=== PATIENT | female | born 1985 | race Caucasian/White ===

== ENCOUNTER → 2017-02-06 | Outpatient (CLI) | payer OTHER ==
[2017-02-06 12:20] LABS: ADD MAN DIFF? NO
[2017-02-06 12:29] LABS: BASO # 0.1 x10^3/uL (0.0-0.2); BASO % 1 % (0-3); EOS # 0.1 x10^3/uL (0.0-0.7); EOS % 1 % (0-3); HEMATOCRIT 38.8 % (36.0-47.0); HEMOGLOBIN 12.9 g/dL (12.0-15.5); LYMPH # 2.3 x10^3/uL (1.0-4.8); LYMPH % 23 % (24-48); MEAN CORPUSCULAR HEMOGLOBIN 30 pg (25-35); MEAN CORPUSCULAR HGB CONC 33 g/dL (31-37); MEAN CORPUSCULAR VOLUME 90 fL (79-100); MONO # 0.6 x10^3/uL (0.0-1.1); MONO % 6 % (0-9); NEUT # 6.9 x10^3uL (1.8-7.7); NEUT % 70 % (31-73); PLATELET COUNT 225 x10^3/uL (140-400); RED BLOOD COUNT 4.33 x10^6/uL (3.50-5.40); RED CELL DISTRIBUTION WIDTH 13.9 % (11.5-14.5); WHITE BLOOD COUNT 9.9 x10^3/uL (4.0-11.0)
[2017-02-06 17:11] LABS: HEP B SURFACE AG Negative (Negative)
[2017-02-07 06:14] LABS: RPR Non Reactive (Non Reactive)
[2017-02-07 14:22] LABS: HIV ANTIBODY Non Reactive (Non Reactive)
== END | disposition home or self-care (01) ==
LOC: LAB 12:03
DX: Z34.91 Encounter for supervision of normal pregnancy, unspecified, first trimester (principal); Z3A.09 9 weeks gestation of pregnancy
CPT/HCPCS: 36415; 85025; 86593; 86703; 86762; 86850; 86900; 86901; 87086; 87340

== ENCOUNTER → 2017-02-15 | Outpatient (CLI) | payer OTHER | END | disposition home or self-care (01) | LOC: KCIC US 12:57 | DX: O26.891 Other specified pregnancy related conditions, first trimester (principal); Z3A.13 13 weeks gestation of pregnancy | CPT/HCPCS: 76801; 76817 ==

== ENCOUNTER → 2017-04-11 | Outpatient (CLI) | payer OTHER | END | disposition home or self-care (01) | LOC: KCIC US 10:46 | DX: Z34.92 Encounter for supervision of normal pregnancy, unspecified, second trimester (principal); Z3A.20 20 weeks gestation of pregnancy | CPT/HCPCS: 76805 ==

== ENCOUNTER → 2017-07-03 | Outpatient (CLI) | payer OTHER | END | disposition home or self-care (01) | LOC: KCIC US 14:46 | DX: O36.5930 Maternal care for other known or suspected poor fetal growth, third trimester, not applicable or unspecified (principal); Z3A.33 33 weeks gestation of pregnancy | CPT/HCPCS: 76805 ==

== ENCOUNTER 2017-08-21 07:41 | Inpatient (IN) | payer OTHER ==
[2017-08-21] MEDS ORDERED: OXYTOCIN 30 UNIT/500 ML PREMIX 500 ML IV ×2 (08:30→15:00)
[2017-08-21] MEDS ORDERED: LIDOCAINE 1% PF 30 ML VIAL. INJ (08:30)
[2017-08-21] MEDS ORDERED: TERBUTALINE 1 MG/ML VIAL. SQ (08:30)
[2017-08-21] MEDS ORDERED: 0.9 % SODIUM CHLORIDE 10 ML DISP.SYRIN. IV ×2 (08:30→15:00)
[2017-08-21 08:38] LABS: ADD MAN DIFF? NO
[2017-08-21 08:42] LABS: BASO % 0 % (0-3); EOS % 0 % (0-3); HEMOGLOBIN 13.4 g/dL (12.0-15.5); LYMPH # 2.3 x10^3/uL (1.0-4.8); LYMPH % 18 % (24-48); MEAN CORPUSCULAR HEMOGLOBIN 31 pg (25-35); MEAN CORPUSCULAR HGB CONC 35 g/dL (31-37); MEAN CORPUSCULAR VOLUME 89 fL (79-100); MONO # 1.2 x10^3/uL (0.0-1.1); MONO % 9 % (0-9); NEUT # 9.6 x10^3uL (1.8-7.7); NEUT % 73 % (31-73); PLATELET COUNT 178 x10^3/uL (140-400); RED BLOOD COUNT 4.36 x10^6/uL (3.50-5.40); WHITE BLOOD COUNT 13.2 x10^3/uL (4.0-11.0)
[2017-08-21 08:43] LABS: BILIRUBIN,URINE NEGATIVE (NEG); COLOR,URINE YELLOW; GLUCOSE,URINE NEGATIVE (NEG); NITRITE,URINE NEGATIVE (NEG); PROTEIN,URINE NEGATIVE (NEG-TRACE); UROBILINOGEN,URINE 0.2 mg/dL (0.2 mg/dL)
[2017-08-21] MEDS: IV RINGERS,LACTATED 1000ML 1,000 ML IV (08:58)
[2017-08-21 09:00] LABS: BACTERIA,URINE MANY /HPF (0-FEW); CLARITY,URINE HAZY; SQUAMOUS EPITHELIAL CELL,UR MANY /LPF
[2017-08-21] MEDS: OXYTOCIN 30 UNIT/500 ML PREMIX 500 ML IV (09:04)
[2017-08-21] MEDS: fentaNYL PF VIAL 100 MCG/2 ML VIAL IV (11:32)
[2017-08-21] MEDS: IBUPROFEN 800 MG TABLET. PO ×2 (13:19→23:38)
[2017-08-21] MEDS ORDERED: ZOLPIDEM 5 MG TABLET. PO (15:00)
[2017-08-21] MEDS ORDERED: oxyCODONE/APAP 5/325 1 TAB TABLET PO (15:00)
[2017-08-21] MEDS ORDERED: MAG HYDROX/ALUMINUM HYD/SIMETH 30 ML ORAL.SUSP PO (15:00)
[2017-08-21] MEDS ORDERED: BENZOCAINE 20% TOPICAL AEROSOL SPRAY 57GM CAN. TP (15:00)
[2017-08-21] MEDS ORDERED: HYDROCORTISONE 1% TOPICAL OINTMENT 30GM TUBE. TP (15:00)
[2017-08-21] MEDS ORDERED: PHENYLEPH/MINERAL OIL/PETROLAT RECTAL OINTMENT 28GM TUBE. RC (15:00)
[2017-08-21] MEDS ORDERED: MAGNESIUM HYDROXIDE 2,400 MG/30 ML ORAL.SUSP. PO (15:00)
[2017-08-21] MEDS ORDERED: SIMETHICONE 80 MG TAB.CHEW PO (15:00)
[2017-08-21] MEDS: FERROUS SULFATE 325 MG TABLET. PO (16:51)
[2017-08-21] MEDS: ACETAMINOPHEN 325 MG TABLET. PO (18:44)
[2017-08-22 06:01] LABS: HEMATOCRIT 36.7 % (36.0-47.0)
[2017-08-22] MEDS: IBUPROFEN 800 MG TABLET. PO (09:22)
[2017-08-22] MEDS: DOCUSATE SODIUM 100 MG CAPSULE. PO (09:22)
[2017-08-22] MEDS: DIPHTH,PERTUSS(ACELL),TET TOX 0.5 ML DISP.SYRIN. VAX IM (09:24)
== END 2017-08-22 15:01 | disposition home or self-care (01) | DRG 775 ==
LOC: 3 SO LND 07:41 → 3 NORTH 15:10
PROVIDERS: Family Medicine
PROC: 10E0XZZ Delivery of Products of Conception, External Approach (ICD-10-PCS; principal; 2017-08-21)
PROC: 3E033VJ Introduction of Other Hormone into Peripheral Vein, Percutaneous Approach (ICD-10-PCS; 2017-08-21)
DX: O69.81X0 Labor and delivery complicated by cord around neck, without compression, not applicable or unspecified (principal); Z37.0 Single live birth; Z3A.40 40 weeks gestation of pregnancy
CPT/HCPCS: 36415; 81001; 85014; 85025; 86592; 86850; 86900; 86901; 87086; 90715; J2590; J3010; J7120